=== PATIENT | female | born 1995 | race Caucasian/White ===

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

== ENCOUNTER 2019-06-07 23:43 | Emergency (ER) | payer MEDICAID ==
[2019-06-07] MEDS ORDERED: 0.9 % SODIUM CHLORIDE 1000ML 1,000 ML IV SCH (23:45)
[2019-06-07] MEDS ORDERED: ONDANSETRON HCL IV 4 MG/2 ML VIAL IVP ONE (23:51)
[2019-06-07] MEDS ORDERED: HYOSCYAMINE SULFATE ODT 0.125 MG TAB.SUBL SL ONE (23:51)
--- NOTE | 2019-06-07 23:58 | Emergency Department Record ---
History of Present Illness - General Chief Complaint: Abdominal Pain Stated Complaint: STOMACH PAIN Time Seen by Provider: 06/07/19 23:46 Source: Patient Mode of Arrival: Ambulatory Limitations: No limitations - History of Present Illness Initial Comments: 23 yo female presents to ED for evaluation of abdomen pain symptoms for the past 1 week, reports vomiting x 1 when her symptoms began at that time. Patient denies fevers, chills, or change in stools, denies urinary symptoms or flank pain symptoms. Patient reports similar symptoms approximately 1 months ago with negative work-up for appendicitis. Patient denies health problems at her baseline. MD Complaint: Abdominal pain Onset/Timin -: Week(s) Location: Diffuse Radiation: None Migration to: No migration Severity: Moderate Quality: Aching Consistency: Constant Improves With: Nothing Worsens With: Nothing Associated Symptoms: Denies other symptoms - Related Data Previous Rx's Medication Instructions Recorded Hyoscyamine Sulfate [Levsin-Sl] 0.25 mg SL Q8H PRN #30 tab.subl 06/08/19 Allergies Allergy/AdvReac Type Severity Reaction Status Date / Time No Known Drug Allergies Allergy Verified 02/18/16 23:57 Review of Systems Constitutional: Denies: Chills, Fever, Malaise, Night sweats Eyes: Denies: Eye discharge, Eye pain ENT: Denies: Congestion, Ear pain, Epistaxis Respiratory: Denies: Cough, Dyspnea Cardiovascular: Denies: Chest pain, Dyspnea on exertion Endocrine: Denies: Fatigue, Heat or cold intolerance Gastrointestinal: Reports: Abdominal pain, Nausea, Vomiting. Denies: Constipation Genitourinary: Denies: Incontinence, Retention Musculoskeletal: Denies: Arthralgia, Back pain Skin: Denies: Bruising, Change in color Neurological: Denies: Abnormal gait, Confusion, Headache, Seizure Psychiatric: Denies: Anxiety Hematological/Lymphatic: Denies: Anemia, Blood Clots Past Medical History - SOCIAL HISTORY Smoking Status: Never smoker Alcohol Use: None Drug Use: None - RESPIRATORY Hx Respiratory Disorders: No - CARDIOVASCULAR Hx Cardio Disorders: No - NEURO Hx Neuro Disorders: No - GI Hx GI Disorders: No - Hx Genitourinary Disorders: No - ENDOCRINE Hx Endocrine Disorders: No - MUSCULOSKELETAL Hx Musculoskeletal Disorders: No - PSYCH Hx Psych Problems: No - HEMATOLOGY/ONCOLOGY Hx Hematology/Oncology Disorders: No Family Medical History Any Significant Family History?: Yes Hx Diabetes: Grandparents Hx Heart Disease: Grandparents Physical Exam - General General Appearance: Alert, Oriented x3, Cooperative, No acute distress, Other (Smiling on examination, well appearing) Limitations: No limitations - Head Head exam: Atraumatic, Normocephalic, Normal inspection Head exam detail: negative: Abrasion, Contusion, Falcon's sign, General tenderness, Hematoma, Laceration - Eye Eye exam: Normal appearance. negative: Conjunctival injection, Periorbital swelling, Periorbital tenderness, Scleral icterus - ENT Ear exam: negative: Auricular hematoma, Auricular trauma Nasal Exam: negative: Active bleeding, Discharge, Dried blood, Foreign body Mouth exam: negative: Drooling, Laceration, Muffled voice, Tongue elevation - Neck Neck exam: Normal inspection. negative: Meningismus, Tenderness - Respiratory Respiratory exam: Normal lung sounds bilaterally. negative: Rales, Respiratory distress, Rhonchi, Stridor - Cardiovascular Cardiovascular Exam: Normal rhythm, Normal heart sounds, Tachycardia - GI/Abdominal GI/Abdominal exam: Soft. negative: Distended, Guarding, Rebound, Rigid, Tenderness - Rectal Rectal exam: Deferred - exam: Deferred - Extremities Extremities exam: Normal inspection. negative: Pedal edema, Tenderness - Back Back exam: Denies: CVA tenderness (R), CVA tenderness (L) - Neurological Neurological exam: Alert, Normal gait, Oriented X3 - Psychiatric Psychiatric exam: Normal affect, Normal mood - Skin Skin exam: Normal color. negative: Abrasion Type of lesion: negative: abrasion Course - Reevaluation(s) Reevaluation #1: 06/07/19 23:55 CT Abdomen and Pelvis 04/13/19: No acute process Normal appendix Marked hepatic steatosis Patient was seen and examined Abdominal examination does not demonstrate any evidence for a surgical process No evidence for ovarian torsion on examination. Repeat CT imaging does not appear indicated based on the patient's examination and review of the patient's previous CT imaging. Will obtain laboratory studies, administer Zofran and Levsin, and reassess. Reevaluation #2: 06/08/19 00:42 Laboratory studies were obtained, nursing staff unable to establish IV. Patient is refusing further attempts at this time. Levsin given PO, patient declined Zofran at this time. UA reviewed and appears negative for infection. Reevaluation #3: 06/08/19 01:09 Laboratory studies were reviewed and appear grossly unremarkable for an acute process. Patient was updated on all results, resting comfortably on re-examination. No evidence for acute inflammatory process on examination, levsin has improved her symptoms as well. Repeat abdominal examination is benign as well. Patient appears stable for discharge at this time with Levsin as directed. I did recommend GI consultation if symptoms persist as well. Medical Decision Making - Lab Data Result diagrams: 06/07/19 00:30 06/07/19 00:30 Disposition Disposition: Discharge Clinical Impression: Abdominal pain Qualifiers: Abdominal location: generalized Qualified Code(s): R10.84 - Generalized abdominal pain Disposition: Home, Self-Care Condition: (2) Stable Instructions: Abdominal Pain (ED) Additional Instructions: Return to ED if your symptoms worsen or if you have any concerns. Levsin as directed. Follow-up with your family doctor in 3-5 days as directed. Prescriptions: Hyoscyamine Sulfate [Levsin-Sl] 0.25 mg SL Q8H PRN #30 tab.subl PRN Reason: Abdominal Pain Forms: Patient Portal Access Time of Disposition: 01:09 Quality - Quality Measures Quality Measures: N/A - Blood Pressure Screening Does Patient Have Any of the Following: No Blood Pressure Classification: Hypertensive Reading Systolic Measurement: 152 Diastolic Measurement: 101 Screening for High Blood Pressure: < First Hypertensive BP, F/U Documented > [G8950] First Hypertensive Follow-up Interventions: Referral to alternative/primary care provider.
[2019-06-08 00:29] LABS: URINE APPEARANCE CLEAR; URINE BILIRUBIN NEGATIVE (NEGATIVE); URINE BLOOD TRACE-I (NEGATIVE); URINE COLOR YELLOW; URINE GLUCOSE (UA) NEGATIVE (NEGATIVE); URINE KETONE NEGATIVE (NEGATIVE); URINE LEUKOCYTE ESTERASE NEGATIVE (NEGATIVE); URINE NITRITE NEGATIVE (NEGATIVE); URINE PROTEIN NEGATIVE (NEGATIVE); URINE UROBILINOGEN 0.2 E.U./dL (0.20 - 1.00)
[2019-06-08 00:30] LABS: HCG,QUALITATIVE URINE NEGATIVE (NEGATIVE)
[2019-06-08 00:32] LABS: URINE EPITHELIAL CELLS 0 - 2 (FEW); URINE RBC 0 - 2 (NONE SEEN); URINE WBC 0 - 2 (0-2/hpf)
[2019-06-08 00:42] LABS: ABSOLUTE NEUTROPHIL COUNT 6.03; BASO % 0.1 % (0-6); EOS % 0.9 % (0-6); GRAN % 65.3 % (47-80); HEMATOCRIT 43.3 % (35.0-47.0); HEMOGLOBIN 14.8 gm/dl (11.6-16.0); LYMPH % 27.3 % (16-45); MEAN CELL VOLUME 91.5 fl (81-97); MEAN CORPUSCULAR HEMOGLOBIN 31.3 pg (27-33); MEAN CORPUSCULAR HGB CONC 34.2 g/dl (32-36); MEAN PLATELET VOLUME 8.9 fl (7.4-10.4); MONO % 6.4 % (0-9); PLATELET COUNT 294 K/uL (130-400); RED BLOOD COUNT 4.73 M/uL (3.80-5.40); RED CELL DISTRIBUTION WIDTH 12.9 % (11.5-14.5); WHITE BLOOD COUNT W/O DIFF 9.2 K/uL (4.2-12.2)
[2019-06-08 00:56] LABS: BLOOD UREA NITROGEN 13 mg/dL (6-20)
[2019-06-08 00:57] LABS: CREATININE 0.7 mg/dL (0.5-0.9); EST GLOMERULAR FILTRATION RATE > 60 mL/min; LIPASE 31 U/L (13-60); TOTAL PROTEIN 8.3 g/dL (6.6-8.7)
[2019-06-08 00:59] LABS: GLUCOSE,RANDOM 98 mg/dL (74-109)
[2019-06-08 01:02] LABS: ALB/GLOB RATIO 1.4 (1.1-1.8); ALBUMIN 4.8 g/dL (4.0-5.0); ALKALINE PHOSPHATASE 83 U/L (35-104); ALT/SGPT 59 U/L (<33); AST/SGOT 42 U/L (10.0-35.0)
== END 2019-06-08 01:17 | disposition home or self-care (01) ==
LOC: ER 23:43
DX: R10.84 Generalized abdominal pain (principal); R11.10 Vomiting, unspecified
CPT/HCPCS: 80053; 81001; 81025; 83690; 85025; 99284

== ENCOUNTER 2019-08-20 04:05 | Emergency (ER) | payer MEDICAID ==
[2019-08-20] MEDS ORDERED: HYOSCYAMINE SULFATE ODT 0.125 MG TAB.SUBL SL ONE (04:30)
[2019-08-20 16:41] LABS: ALB/GLOB RATIO 1.4 (1.1-1.8); ALBUMIN 4.7 g/dL (4.0-5.0); ALKALINE PHOSPHATASE 77 U/L (35-104); ALT/SGPT 40 U/L (<33); AST/SGOT 42 U/L (10.0-35.0); BLOOD UREA NITROGEN 12 mg/dL (6-20); CREATININE 0.7 mg/dL (0.5-0.9); EST GLOMERULAR FILTRATION RATE > 60 mL/min; GLUCOSE,RANDOM 107 mg/dL (74-109); LIPASE 34 U/L (13-60); TOTAL PROTEIN 8.1 g/dL (6.6-8.7)
[2019-08-20 16:43] LABS: URINE APPEARANCE CLEAR; URINE BILIRUBIN NEGATIVE (NEGATIVE); URINE COLOR YELLOW; URINE GLUCOSE (UA) NEGATIVE (NEGATIVE)
[2019-08-20 16:44] LABS: HCG,QUALITATIVE URINE NEGATIVE (NEGATIVE); URINE BLOOD NEGATIVE (NEGATIVE); URINE KETONE 40 mg/dL (NEGATIVE); URINE LEUKOCYTE ESTERASE NEGATIVE (NEGATIVE); URINE NITRITE NEGATIVE (NEGATIVE); URINE PROTEIN NEGATIVE (NEGATIVE); URINE UROBILINOGEN 0.2 E.U./dL (0.20 - 1.00)
[2019-08-20 16:46] LABS: ABSOLUTE NEUTROPHIL COUNT 6.92; BASO % 0.3 % (0-6); EOS % 2.1 % (0-6); GRAN % 64.8 % (47-80); HEMATOCRIT 44.2 % (35.0-47.0); HEMOGLOBIN 15.3 gm/dl (11.6-16.0); INFLUENZA A NEGATIVE (NEGATIVE); INFLUENZA B NEGATIVE (NEGATIVE); LYMPH % 25.9 % (16-45); MEAN CELL VOLUME 90.6 fl (81-97); MEAN CORPUSCULAR HEMOGLOBIN 31.4 pg (27-33); MEAN CORPUSCULAR HGB CONC 34.6 g/dl (32-36); MEAN PLATELET VOLUME 9.5 fl (7.4-10.4); MONO % 6.9 % (0-9); PLATELET COUNT 298 K/uL (130-400); RED BLOOD COUNT 4.88 M/uL (3.80-5.40); RED CELL DISTRIBUTION WIDTH 12.5 % (11.5-14.5); WHITE BLOOD COUNT W/O DIFF 10.7 K/uL (4.2-12.2)
== END 2019-08-20 07:30 | disposition home or self-care (01) ==
LOC: ER 04:05
DX: G89.29 Other chronic pain (principal); R10.31 Right lower quadrant pain; R51 Headache; R11.0 Nausea; R53.1 Weakness
CPT/HCPCS: 80053; 81003; 81025; 83690; 85025; 87400; 99284